=== PATIENT | male | born 1975 | race Caucasian/White ===

== ENCOUNTER 2016-06-03 13:25 | Emergency (ER) | payer SELFPAY ==
--- NOTE | 2016-06-03 13:49 | EDM.PDOC ---
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 February of this year patient underwent a left hip replacement with Dr. Bragg in [place]. He recovered nicely from the surgery. Patient relates to taking Tylenol for his pain. ] Review of Systems: As per history of present illness and below otherwise all systems reviewed and negative. Past medical history: As per history of present illness and as reviewed below otherwise noncontributory. Surgical history: As per history of present illness and as reviewed below otherwise noncontributory. Social history: No reported history of drug or alcohol abuse. Family history: As per history of present illness and as reviewed below otherwise noncontributory. Physical exam:Alert oriented gentleman affect was appropriately HEENT: Atraumatic, normocehpalic, pupils reactive, negative for conjunctival pallor or scleral icterus, mucous membranes moist, throat clear, neck supple, nontender, trachea midline. Lungs: Clear to auscultation, breath sounds equal bilaterally, chest non tender. Heart: S1S2, regular, negative for clicks, rubs, or JVD. Abdomen: Soft, nondistended, nontender. Negative for masses or hepatossplenmegaly. Negative for costovertebral tenderness. Pelvis: Stable nontender. Genitourinary: Deferred. Rectal: Deferred Extremities: Atraumatic, negative for cords or calf pain. Mild tenderness with palpation to the lateral left. left knee has no edema. Full flexion and extension is present .no lateral instability . Patient has walked in to the ED. Mild gait abnormality with limping. Neurovascular unremarkable. Neuro: Awake, alert, oriented. Cranial nerves II through XII unremarkable. Cerebellum unremarkable. Motor and sensory unremarkable throughout. Exam nonfocal. No gross abnormalities were noted upon physical examination or on the x-ray pain only occurs when he is standing and twisting movement. Diagnostics: [ X. left knee/CBC] Therapeutics: [ ] Impression: [ Left knee pain] Plan: [Tramadol Referral to Dr. Cooney] Definitive disposition and diagnosis as appropriate pending reevaluation and review of above. Occurred When: yesterday Occurred Where: work Method of Injury: unknown Severity: moderate Pain/Injury Location: Reports: lower extremity, left Consciousness: Reports: no loss of consciousness Associated Symptoms: Reports: no other symptoms Allergies/ADRs: Allergies ibuprofen Allergy (Verified 06/03/16 13:30) Cough Home Medications: Ambulatory Orders traMADol [Ultram] 50 mg PO Q4H #20 tablet 06/03/16 Past Medical History - Past Health History Medical/Surgical History: Denies Medical/Surgical History HEENT History: Reports: None Cardiovascular History: Reports: Hypertension Respiratory History: Reports: None Gastrointestinal History: Reports: PUD Genitourinary History: Reports: None Musculoskeletal History: Reports: None Other Musculoskeletal History: Right Hip Pain Neurological History: Reports: None Psychiatric History: Reports: None Endocrine/Metabolic History: Reports: None Hematologic History: Reports: None Immunologic History: Reports: None Oncologic (Cancer) History: Reports: None Dermatologic History: Reports: None - Past Surgical History Head Surgeries/Procedures: Reports: None HEENT Surgical History: Reports: None Respiratory Surgical History: Reports: None GI Surgical History: Reports: None Male Surgical History: Reports: None Endocrine Surgical History: Reports: None Neurological Surgical History: Reports: None Musculoskeletal Surgical History: Reports: Hip replacement Oncologic Surgical History: Reports: None Dermatological Surgical History: Reports: None Social & Family History - Family History Family Medical History: Noncontributory - Tobacco Use Smoking Status *Q: Never Smoker - Caffeine Use Caffeine Use: Reports: Coffee - Recreational Drug Use Recreational Drug Use: No - Living Situation & Occupation Living situation: Reports: (With children.) Occupation: employed Review of Systems - Review of Systems Review Of Systems: ROS reveals no pertinent complaints other than HPI. Trauma Exam - Physical Exam Exam: See Below (See dictation) Course - Vital Signs Last Recorded V/S: Last Vital Signs Temp 36.6 C 06/03/16 13:32 Pulse 104 H 06/03/16 13:32 Resp 18 06/03/16 13:32 BP 143/91 H 06/03/16 13:32 Pulse Ox 99 06/03/16 13:32 - Orders/Labs/Meds Orders: Active Orders 24 hr Category Date Time Status Knee 3V Lt [CR] Stat Exams 04/27/17 13:45 Taken Departure - Departure Time of Disposition: 14:47 Disposition: Home, Self-Care 01 Condition: good Clinical Impression: Left anterior knee pain Prescriptions: traMADol [Ultram] 50 mg PO Q4H #20 tablet Forms: ED Department Discharge - My Orders Last 24 Hours: My Active Orders 06/03/16 13:45 Knee 3V Lt [CR] Stat - Assessment/Plan Last 24 Hours: My Active Orders 06/03/16 13:45 Knee 3V Lt [CR] Stat
[2016-06-03 14:59] VITALS: BP 112/76
--- NOTE | 2016-06-03 16:45 | CR ---
EXAM DATE: 06/03/16 PATIENT'S AGE: 41 Patient: FLAKO PATTERSON Facility: [place], [place] Site . Site : 1975 Study: XRay Knee Left [id number] 2:13:28 PM Ordering Physician: Doctor Murdock Final Report: INDICATION: pain LEFT KNEE No fracture, dislocation, or destructive lesion of bone is seen. No definite knee joint effusion is demonstrated. No significant arthritic changes or soft tissue abnormalities are identified. IMPRESSION: Negative left knee radiographs. LENA BALDERAS MD [facility] Dictated by: Delroy Balderas MD @ 06/03/2016 14:37:32 (Electronic Signature) Report Signed by Proxy. [facility]per
== END 2016-06-03 14:55 | disposition home or self-care (01) ==
LOC: MW.ED 13:25
DX: M25.562 Pain in left knee (principal); I10 Essential (primary) hypertension; Z88.6 Allergy status to analgesic agent; Z96.642 Presence of left artificial hip joint
CPT/HCPCS: 73562-26-LT; 73562-LT; 99283